=== PATIENT | female | born 1985 ===

== ENCOUNTER 2021-03-21 22:43 | Emergency (ER) | payer SELFPAY ==
[~2021-03-21] VITALS: Ht 157.5 cm; Wt 78.0 kg
[2021-03-21 22:48] VITALS: BP 127/77
[2021-03-21] MEDS ORDERED: HYDROmorphone 1 MG/ML, 1ML INJ ONE (23:24)
[2021-03-21] MEDS ORDERED: ONDANSETRON 2MG/ML, 2ML ONE (23:25)
[2021-03-21] MEDS ORDERED: LORazepam 2 MG/ML, 1ML ONE (23:27)
[2021-03-22] MEDS ORDERED: ONDANSETRON 2MG/ML, 2ML ONE (01:45)
== END 2021-03-21 22:50 ==
LOC: EDBD 22:43 → ED 22:44
DX: R07.9 Chest pain, unspecified (principal); R10.9 Unspecified abdominal pain; R94.31 Abnormal electrocardiogram [ECG] [EKG]; Z53.21 Procedure and treatment not carried out due to patient leaving prior to being seen by health care provider
CPT/HCPCS: 93005; 99283